=== PATIENT | female | born 1960 | race Caucasian/White ===

== ENCOUNTER → 2020-08-30 12:06 | Outpatient (CLI) | payer OTHER, MEDICAID, SELFPAY ==
--- NOTE | 2020-08-30 13:34 | NEURO_ITS ---
NCS and/or EMG Patient Report Ordering Doctor: Ana Stover DATE OF SERVICE: 08/30/20 Indication: Bilateral hand pain, numbness and biomathematician weakness (right greater than left). Evaluate for entrapment neuropathy. Findings: Nerve conduction studies were performed in the right upper extremity. The right median motor study recording the abductor pollicis brevis showed a normal amplitude, normal distal latency and normal conduction velocity. The right ulnar motor study recording the abductor digiti minimi showed a normal amplitude, normal distal latency and normal conduction velocity. Focal slowing was present across the elbow. The right ulnar motor study recording the first dorsal interosseous showed a normal amplitude, normal distal latency and normal conduction velocity. No conduction block or focal slowing was present across the elbow. Right median-ulnar lumbrical / interosseous motor latencies showed a prolonged median latency compared to the ulnar. The right median sensory response recording digit two showed a normal amplitude, latency and conduction velocity. The right ulnar sensory response recording digit five showed a normal amplitude, latency and conduction velocity. The right radial sensory response recording over the extensor snuff box showed a normal amplitude, latency and conduction velocity. The right dorsal ulnar sensory response recording volar webspace between digits four and five showed a normal amplitude, latency and conduction velocity. The left dorsal ulnar sensory re sponse recording volar webspace between digits four and five showed a normal amplitude, latency and conduction velocity, and was symmetric with the right. The left median motor study recording the abductor pollicis brevis showed a normal amplitude, normal distal latency and normal conduction velocity. The left ulnar motor study recording the abductor digiti minimi showed a normal amplitude, normal distal latency and normal conduction velocity. Focal slowing was present across the elbow. Left median-ulnar lumbrical / interosseous motor latencies showed a prolonged median latency compared to the ulnar. The left median sensory response recording digit two showed a normal amplitude, latency and conduction velocity. The left ulnar sensory response recording digit five showed a normal amplitude, latency and conduction velocity. The left radial sensory response recording over the extensor snuff box showed a normal amplitude, latency and conduction velocity. Needle EMG of the right upper extremity and cervical paraspinal muscles was performed. No denervation was seen in any muscle. All motor unit morphology, activation and recruitment patterns were normal. Needle EMG of the left upper extremity was deferred at the patient's request and reasonable given the paucity of findings in the more symptomatic limb. Impression: This is an abnormal study. 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 The pathophysiology was demyelinating. There was no evidence of secondary axonal loss in the right ulnar distribution. In addition, there is electrophysiologic evidence suggestive, but not diagnostic of, very mild median neuropathies across the wrist on both sides. Neuromuscular ultrasound of the carpal tunnel could be considered for further evaluation if clinically indicated. Finally, there is no electrophysiologic evidence of a superimposed cervical radiculopathy in the right upper extremity. Mark Keith D.O.
== END ==
PROVIDERS: PCP Physician Assistant; Referring Provider Physician Assistant; Visit Provider Physician Assistant
DX: R20.0 Anesthesia of skin (principal)
CPT/HCPCS: 95886; 95913

== ENCOUNTER 2021-07-09 10:00 | Outpatient (CLI) | payer OTHER, MEDICAID, SELFPAY ==
--- NOTE | 2021-07-09 | ASPSI_PTH ---
PATIENT: PARMJIT KENYON LOC: [facility] U#:[id number] AGE/SX: 61/F ROOM: RE07/09/[address]: Dr. George Lund MD : 1960 BED: DIS: 07/09/2021 SPEC #: [id number] RECD: 07/10/21 07:07 STATUS: KASIE KAREN #: [id number] ONEL: 07/09/21 00:[address]: George Lund DEPT: CYTOLOGY RECD BY: Skylar Funes ENTERED: 07/10/21 09:30 SP TYPE: ASP KAMILLE TORRES DR: RAMEZ Perera Tissues: A - Thyroid gland, NOS B - Thyroid gland, NOS C - Thyroid gland, NOS D - Thyroid gland, NOS Procedures: Surgery Specimen Level IV Cytospin Fluid Cytology Other HEADER OPERATION: Thyroid fine needle aspiration PRE-OP DIAGNOSIS: Multiple thyroid nodules TISSUE SUBMITTED: A - Left inferior thyroid nodule fluid, B - Left inferior thyroid nodule x4 slides, C - Left most inferior thyroid nodules fluid, D - Left most inferior thyroid nodules x2 slides DIAGNOSIS CYTOLOGY A. Left inferior thyroid nodule fluid, fine needle aspiration (cytospin and cell block): Rare macrophages are noted. B. Left inferior thyroid nodule, fine needle aspiration (smears): Consistent with benign follicular/colloid nodule. Adequate for evaluation. C. Left most inferior thyroid nodule fluid, fine needle aspiration (cytospin and cell block): Small amount of colloid and rare macrophages is noted. D. Left most inferior thyroid nodule, fine needle aspiration (smears): Rare follicular cells, macrophages and small amount of colloid nodule noted, suggestive of benign follicular/colloid nodule. The specimen is limited in evaluation due to lack of adequate number of follicular cells. See comment. SJ:rg 07/11/2021 COMMENT Correlation with clinical, radiologic findings and appropriate follow up are necessary. CYTOLOGY STUDY Slides are reviewed. CYTOLOGY GROSS A - Received is 30 ml of red cloudy fluid labeled with the patient's name and and designated per the requisition as left inferior thyroid nodule. Submitted for cytology preparation including cell block. B - Received are four smears labeled with the patient's name and designated per the requisition as left inferior thyroid nodule. Submitted for staining. C - Received is 20 ml of pink cloudy fluid labeled with the patient's name and and designated per the requisition as left most inferior thyroid nodules. Submitted for cytology preparation including cell block. D - Received are two smears labeled with the patient's name and designated per the requisition as left most inferior thyroid nodules. Submitted for staining. / juliet 07/10/2021 TC:5 CPT: 65677 x2, 49670 x4
== END 2021-07-09 23:59 | disposition home or self-care (01) ==
LOC: LABSPEC 07-10 07:41
PROVIDERS: PCP Physician Assistant; Visit Provider Surgery
DX: E04.2 Nontoxic multinodular goiter (principal)
CPT/HCPCS: 88108; 88161; 88305

== ENCOUNTER → 2022-03-18 | Outpatient (CLI) | payer OTHER, MEDICAID, SELFPAY ==
--- NOTE | 2022-03-18 09:51 | NM_ITS ---
CLINICAL: 61-year-old female with history of low back pain. WHOLE BODY 99m Tc MDP RADIONUCLIDE BONE SCINTIGRAPHY COMPARISON: Plain film radiograph report lumbar spine 03/10/2022 FINDINGS: Following the intravenous administration of 20.4 mCi of 99m Tc MDP, whole body bone images reveal: 1. Increased tracer concentration is defined in the acromioclavicular, sternoclavicular, glenohumeral compartments of both shoulders, mid cervical spine posteriorly on the right, the hip articulations bilaterally, the medial tibial compartment of the right knee, the patellofemoral compartment of the left knee. 2. The remaining skeletal structures are scintigraphically unremarkable with normal-appearing renal images and urinary bladder activity identified. A left knee arthroplasty is defined which is scintigraphically unremarkable. NM/Bone Scan Whole Body IMPRESSION: 1. Degenerative changes are defined in the bilateral shoulders, cervical spine, both hip articulations, the medial tibial compartment of the right knee, the patellofemoral compartment of the left knee (in the absence of patellar hardware placement). 2. There is no scintigraphic evidence of trauma-fracture and/or large articulation synovitis on the current examination. Electronically Signed: Bryce Alonso, at 10:18 EST ,
== END | disposition home or self-care (01) ==
PROVIDERS: PCP Physician Assistant; Referring Provider Orthopaedic Surgery; Visit Provider Orthopaedic Surgery
DX: C79.9 Secondary malignant neoplasm of unspecified site (principal)
CPT/HCPCS: 78306; A9503